=== PATIENT | male | born 1950 ===

== ENCOUNTER 2021-01-18 21:51 | Inpatient (IN) | payer MEDICARE ==
[~2021-01-18] VITALS: Ht 175.3 cm; Wt 80.6 kg
[2021-01-18 22:05] LABS: BASOPHILS ABSOLUTE AUTO 0.03 K/mm3 (0.00-0.23); BASOPHILS PERCENT AUTO 0 % (0-2); EOSINOPHILS ABSOLUTE AUTO 0.04 K/mm3 (0.00-0.68); EOSINOPHILS PERCENT AUTO 0 % (0-6); Hematocrit 35.3 % (37.0-53.0); Hemoglobin 12.2 g/dL (13.5-17.5); Mean Corpuscular HGB 28.2 pg (26.0-34.0); Mean Corpuscular HGB Conc 34.6 g/dL (31.5-36.5); Mean Corpuscular Volume 82 fL (80-100); Mean Platelet Volume 9.2 fL (9.1-12.4); Platelet Count 207 K/mm3 (150-400); RDW Coefficient Variation 13.9 % (11.7-14.2); RDW Standard Deviation 41.1 fL (35.1-46.3); Red Blood Cell Count 4.33 M/mm3 (4.30-5.90); White Blood Cell Count 18.41 K/mm3 (4.00-11.30)
[2021-01-18 22:11] LABS: IMMATURE GRAN ABSOLUTE AUTO 0.45 K/mm3 (0.00-0.10); IMMATURE GRAN PERCENT AUTO 2 % (0-1); LYMPHOCYTES PERCENT AUTO 4 % (21-46); MONOCYTES ABSOLUTE AUTO 0.96 K/mm3 (0.16-1.47); MONOCYTES PERCENT AUTO 5 % (4-13); NEUTROPHILS ABSOLUTE AUTO 16.13 K/mm3 (1.96-9.15); NEUTROPHILS PERCENT AUTO 88 % (41-73)
[2021-01-18 22:25] LABS: Albumin, Blood 2.9 g/dL (3.4-5.0); Albumin/Globulin Ratio 0.7 (0.8-1.8); Bilirubin, Total 0.7 mg/dL (0.1-1.0); Bun/Creatinine Ratio 20.9 (12.0-20.0); Calcium, Blood 8.2 mg/dL (8.5-10.1); Creatinine, Blood 1.34 mg/dL (0.60-1.20); Globulin, Blood 4.1 g/dL (2.2-4.0); Troponin I 0.127 ng/mL (0.000-0.040)
[2021-01-19 06:06] LABS: BASOPHILS ABSOLUTE AUTO 0.02 K/mm3 (0.00-0.23); BASOPHILS PERCENT AUTO 0 % (0-2); EOSINOPHILS PERCENT AUTO 0 % (0-6); Hematocrit 36.4 % (37.0-53.0); Hemoglobin 12.3 g/dL (13.5-17.5); Mean Corpuscular HGB Conc 33.8 g/dL (31.5-36.5); Mean Corpuscular Volume 83 fL (80-100); Mean Platelet Volume 8.9 fL (9.1-12.4); Platelet Count 199 K/mm3 (150-400); RDW Coefficient Variation 14.1 % (11.7-14.2); White Blood Cell Count 16.63 K/mm3 (4.00-11.30)
[2021-01-19 06:15] LABS: IMMATURE GRAN ABSOLUTE AUTO 0.31 K/mm3 (0.00-0.10); IMMATURE GRAN PERCENT AUTO 2 % (0-1); LYMPHOCYTES ABSOLUTE AUTO 0.98 K/mm3 (0.84-5.20); LYMPHOCYTES PERCENT AUTO 6 % (21-46); MONOCYTES ABSOLUTE AUTO 0.67 K/mm3 (0.16-1.47); MONOCYTES PERCENT AUTO 4 % (4-13); NEUTROPHILS ABSOLUTE AUTO 14.65 K/mm3 (1.96-9.15); NEUTROPHILS PERCENT AUTO 88 % (41-73)
[2021-01-19 06:31] LABS: Alanine Aminotransfer (ALT/SGP 340 U/L (12-78); Albumin, Blood 2.8 g/dL (3.4-5.0); Albumin/Globulin Ratio 0.7 (0.8-1.8); Alk Phos 229 U/L (50-136); Anion Gap 11 mmol/L (6-16); Aspartate Aminotrans (AST/SGOT 143 U/L (12-37); Bilirubin, Total 0.9 mg/dL (0.1-1.0); Blood Urea Nitrogen 26 mg/dL (8-24); Bun/Creatinine Ratio 22.2 (12.0-20.0); CO2, Blood 20 mmol/L (21-32); CPK Creatine Kinase 262 U/L (39-308); Calcium, Blood 7.8 mg/dL (8.5-10.1); Chloride, Blood 107 mmol/L (98-108); Creatinine, Blood 1.17 mg/dL (0.60-1.20); Glomerular Filtration Rate >60 (60-); Glucose, Blood 143 mg/dL (70-99); Sodium, Blood 138 mmol/L (136-145); Total Protein, Blood 6.8 g/dL (6.4-8.2); Troponin I 0.189 ng/mL (0.000-0.040)
--- NOTE | 2021-01-19 07:46 | NUR ---
SHIFT SUMMARY PATIENT ALERT AND ORIENTED X3. ARRIVED TO ROOM 332 VIA STRETCHER. ON 15 LITERS O2 VIA NRB. NO ACUTE ISSUES NOTED OVERNIGHT. IV PATENT AND FLUSHED. BED IN LOWEST POSITION WITH WHEELS LOCKED. CALL LIGHT WITHIN REACH. REPORT GIVEN TO ONCOMING RN.
[2021-01-19 09:29] LABS: PCO2 Arterial 29.7 mmHg (35-45); PO2 Arterial 62.5 mmHg (80-100); pH Blood Arterial 7.49 (7.35-7.45)
[2021-01-19 09:33] LABS: BASOPHILS PERCENT MAN 0 % (0-2); EOSINOPHILS PERCENT MAN 0 % (0-6); LYMPHOCYTES ABSOLUTE MAN 0.33 K/mm3 (0.84-5.20); LYMPHOCYTES PERCENT MAN 2 % (21-46); MONOCYTES ABSOLUTE MAN 0.66 K/mm3 (0.16-1.47); MONOCYTES PERCENT MAN 4 % (4-13); MYELOCYTE ABSOLUTE MAN 0.16 K/mm3 (0.00-0.00); MYELOCYTE PERCENT MAN 1 % (0-0); NEUTROPHILS ABSOLUTE MAN 15.46 K/mm3 (1.96-9.15); SEG NEUTROPHILS PERCENT MAN 93 % (41-73); TOTAL CELLS COUNTED 100
--- NOTE | 2021-01-19 11:50 | NUR ---
echocardiogram complete
[2021-01-19 15:18] LABS: Troponin I 0.261 ng/mL (0.000-0.040)
--- NOTE | 2021-01-20 07:05 | NUR ---
SHIFT SUMMARY PATIENT ALERT AND ORIENTED X3. NO COMPLAINTS OF PAIN OR SHORTNESS OF BREATH. PATIENT SWITCHED FROM NONREBREATHER MASK TO OXYMIZER AND CONTINUES ON 15 LITERS O2. IV PATENT AND FLUSHED. BED IN LOWEST POSITION WITH WHEELS LOCKED. CALL LIGHT WITHIN REACH. REPORT GIVEN TO ONCOMING RN.
--- NOTE | 2021-01-20 16:05 | NUR ---
PT AOX3 WITH MILD CONFUSION. PT DOING WELL AND CAN CALL APPROPRIATELY. PT MAINTIANING WITH 11L ON OXIMIZER AND SEEMS TO TOLERATE THIS WELL. PT WAS ABLE TO HAVE A SHOWER TODAY WELL. CALL LIGHT IS WITHIN REACH WILL CONTINUET TO MONITOR.
--- NOTE | 2021-01-21 07:14 | NUR ---
SHIFT SUMMARY PATIENT ALERT AND ORIENTED. NO COMPLAINTS OF PAIN OR SHORTNESS OF BREATH. O2 TITRATED DOWN TO 10 LITERS VIA OXYMIZER. NO ACUTE ISSUES NOTED.
--- NOTE | 2021-01-21 18:46 | NUR ---
ALERT. ORIENTED. OXYGEN DOWN TO 5 LPM VIA OXYMIZER WITH SATS OVER 90%. INDEPENDENT IN ROOM. IV PATENT. UNLABORED RESPIRATIONS. TELE ON. WCTM
--- NOTE | 2021-01-22 07:59 | NUR ---
SHIFT SUMMARY MR. GILBERT IS ON 5LPM VIA NC. MONITORED BY TELEMETRY, SINUS 79. A&O X4. EAGER TO DISCHARGE HOME. RESTED WELL THIS SHIFT. VSS. NO ACUTE CHANGES.
--- NOTE | 2021-01-22 16:30 | NUR ---
HOME 02 EVAL- O2 REMOVED AND PT SATS 91% AT REST ON RA. HAD PT GET UP OUT OF BED AND AMBULATE AROUND BED. SATS DROPPED TO 88% INITAILLY BUT THEN IMPROVED TO 90-91% ON RA WHILE PT UP IN ROOM.
--- NOTE | 2021-01-22 18:42 | NUR ---
71YR OLD MALE ADMITED WITH COVID PNEUMONIA AND HYPOXIA. PT IS A&O AND IND IN ROOM. PT WAS ON 02 T/O DAY SATS IN THE LOW 90'S. PT IS EAGER TO GO HOME AND MD REQUESTED HOME O2 EVAL. RN COMPLETED EVAL AT BEDSIDE AND PT WAS ABLE TO MAINTAING O2 SATS >88 AT REST AND ACTIVITY ON RA. DR. MELO NOTIFIED AND PLANS DISCUSSED FOR PT TO RECIEVE FINAL DOSE OF REMDESIVER TONIGHT AND HOPEFULLY D/C HOME IN AM. PT EXPRESSED SOME FRUSTRATION WITH NOT D/C HOME TODAY BUT HE WAS AGREEABLE TO WAIT UNTIL MORNING. NO OTHER CHANGES THIS SHIFT.
--- NOTE | 2021-01-23 08:14 | NUR ---
SHIFT SUMMARY PT HAD NO ACUTE CHANGES. VSS. NO TELE, NO IV. HE IS LOOKING FORWARD TO DISCHARGE TODAY.
[2021-01-23] MEDS ORDERED: Aspir 8181 MG PO (11:38)
[2021-01-23] MEDS ORDERED: ONDA4ODT MM (11:39)
[2021-01-23] MEDS ORDERED: DECADRON4 M1 PO (11:39)
[2021-01-23] MEDS ORDERED: MIRALAX17 GM PO (11:40)
[2021-01-23] MEDS ORDERED: VITAMIN D31000 UNI1 PO (11:42)
[2021-01-23] MEDS ORDERED: ASCO500 PO (11:43)
[2021-01-23] MEDS ORDERED: ZINC220 PO (11:43)
--- NOTE | 2021-01-23 14:52 | NUR ---
PATIENT DISCHARGE: PATIENT DISCHARGED TO HOME THIS SHIFT. MEDICATION RECONCILIATION COMPLETED; MED LIST FAXED TO [facility]. DISCHARGE EDUCATION COMPLETED WITH PATIENT. PATIENT TRANSPORTED TO EXIT BY [facility] STAFF WITH WHEELCHAIR AT 1445. PATIENT DEPARTED [facility] VIA PRIVATE AUTO.
== END 2021-01-23 14:45 | disposition home or self-care (01) | DRG 177 ==
LOC: ER 21:51 → MEDS 23:09 → ENPENDDIS 01-23 11:27 → MEDS 01-23 14:45
PROVIDERS: Internal Medicine; Student in an Organized Health Care Education/Training Program; ADMIT Internal Medicine
PROC: 8E0ZXY6 Isolation (ICD-10-PCS; principal; 2021-01-18)
PROC: 3E0333Z Introduction of Anti-inflammatory into Peripheral Vein, Percutaneous Approach (ICD-10-PCS; 2021-01-19)
PROC: XW033E5 Introduction of Remdesivir Anti-infective into Peripheral Vein, Percutaneous Approach, New Technology Group 5 (ICD-10-PCS; 2021-01-19)
PROC: 5A0935A Assistance with Respiratory Ventilation, Less than 24 Consecutive Hours, High Flow/Velocity Cannula (ICD-10-PCS; 2021-01-20)
DX: U07.1 COVID-19 (principal); J96.01 Acute respiratory failure with hypoxia; I21.A1 Myocardial infarction type 2; J12.82 Pneumonia due to coronavirus disease 2019; N17.9 Acute kidney failure, unspecified; R74.01 Elevation of levels of liver transaminase levels; N18.2 Chronic kidney disease, stage 2 (mild); E88.09 Other disorders of plasma-protein metabolism, not elsewhere classified
CPT/HCPCS: 36415; 36600; 71045; 80053; 82550; 82803; 84484; 85025; 93306; 96374; 99285-25; A9270; J1100; J1650